=== PATIENT | male | born 1945 | race Caucasian/White ===

== ENCOUNTER → 2016-06-03 | Outpatient (CLI) | payer MEDICARE ==
[~2016-06-03] MED LIST: AMLO2.5T PO; ATOR10TA PO; CONTRAST GIVEN MC PRN; GLIP5TAB10 PO; INSU100I13 SQ; IOHEXOL 240 MG/ML 50ML VIAL. PO ONE; IOHEXOL 300 MG/ML 75 ML VIAL IV ONE; LISI2.5T PO; SITA50TA PO
--- NOTE | 2016-06-03 14:11 | RAD ---
Indication: Follow-up renal lesions Technique: Precontrast, portal venous, and delayed imaging was performed. Oral contrast and 75 mL of intravenous Omnipaque 300 was administered without complication. Comparison is from December 13, 2014. One or more of the following individualized dose reduction techniques were utilized for this examination: 1. Automated exposure control 2. Adjustment of the mA and/or kV according to patient size 3. Use of iterative reconstruction technique Findings: Precontrast imaging demonstrates no urolithiasis. Several simple cysts in the right kidney are noted, largest measures 2.3 cm in size. A few of the smaller lesions are difficult to obtain accurate Hounsfield unit measurements, although also likely cysts. No worrisome renal mass involving either kidney is identified. Intrarenal collecting systems and included ureters are within normal limits on delayed imaging. There is dependent atelectasis. There is no pleural effusion. The heart is not enlarged. There is mild fatty infiltration of the liver. Gallbladder is absent or contracted. Benign calcifications are noted in the spleen. Pancreas and adrenals are unremarkable. The included small bowel is unremarkable. There are a few diverticula without findings of diverticulitis in the included colon. Small fat-containing umbilical hernia is noted. There are degenerative changes in the spine. Impression: 1. Simple cysts noted within both kidneys. Additional small lesions within both kidneys, small size limits characterization, but these also appear to also represent simple cysts. 2. Fatty infiltration of the liver.
== END | disposition home or self-care (01) ==
LOC: CT 10:00
PROVIDERS: ATTEND Internal Medicine Hematology & Oncology
DX: N28.1 Cyst of kidney, acquired (principal); K76.0 Fatty (change of) liver, not elsewhere classified; K82.0 Obstruction of gallbladder; D73.89 Other diseases of spleen; K42.9 Umbilical hernia without obstruction or gangrene; J98.11 Atelectasis
CPT/HCPCS: 74170; Q9966; Q9967

== ENCOUNTER → 2017-06-11 | Outpatient (CLI) | payer MEDICARE | END | disposition home or self-care (01) | LOC: KCIC 08:40 | DX: D47.2 Monoclonal gammopathy (principal); M17.0 Bilateral primary osteoarthritis of knee; M19.012 Primary osteoarthritis, left shoulder; M19.011 Primary osteoarthritis, right shoulder; M40.292 Other kyphosis, cervical region; M79.89 Other specified soft tissue disorders | CPT/HCPCS: 70250; 71045; 72040; 72072; 72100; 72170; 73060; 73090; 73550; 73590 ==

== ENCOUNTER 2017-12-21 06:47 | Outpatient (CLI) | payer MEDICARE ==
[2017-12-21] VITALS (7 sets, daily range): BP systolic 146–175; BP diastolic 79–99
[~2017-12-21] VITALS: Ht 170.2 cm; Wt 91.2 kg
[~2017-12-21 06:47] MED LIST changes: -AMLO2.5T PO; +AMLO2.5T3 PO; -CONTRAST GIVEN MC PRN; -IOHEXOL 240 MG/ML 50ML VIAL. PO ONE; -IOHEXOL 300 MG/ML 75 ML VIAL IV ONE
[2017-12-21] MEDS ORDERED: ATOR40TA59 PO (07:19)
[2017-12-21] MEDS ORDERED: HYDR12.53 PO (07:19)
[2017-12-21] MEDS ORDERED: AMLO10TA6 PO (07:19)
[2017-12-21] MEDS ORDERED: LISI-130 PO (07:19)
[2017-12-21 07:25] LABS: BASO # 0.1 x10^3/uL (0.0-0.2); BASO % 1 % (0-3); EOS # 0.2 x10^3/uL (0.0-0.7); EOS % 3 % (0-3); HEMATOCRIT 39.7 % (39.0-53.0); HEMOGLOBIN 13.7 g/dL (13.0-17.5); LYMPH % 27 % (24-48); MEAN CORPUSCULAR HEMOGLOBIN 30 pg (25-35); MEAN CORPUSCULAR HGB CONC 35 g/dL (31-37); MEAN CORPUSCULAR VOLUME 87 fL (79-100); MONO # 0.5 x10^3/uL (0.0-1.1); MONO % 7 % (0-9); NEUT # 4.7 x10^3uL (1.8-7.7); NEUT % 63 % (31-73); PLATELET COUNT 164 x10^3/uL (140-400); RED BLOOD COUNT 4.58 x10^6/uL (4.30-5.70); RED CELL DISTRIBUTION WIDTH 14.6 % (11.5-14.5); WHITE BLOOD COUNT 7.6 x10^3/uL (4.0-11.0)
[2017-12-21 07:40] LABS: PROTHROMBIN TIME PATIENT 12.8 SEC (11.7-14.0)
[2017-12-21] MEDS ORDERED: LIDOCAINE WITH 8.4% SOD BICARB 3 ML DISP.SYRIN. ONE (08:03)
[2017-12-21] MEDS ORDERED: MIDAZOLAM HCL/PF 2 MG/2 ML VIAL. ONE (08:09)
[2017-12-21] MEDS ORDERED: fentaNYL PF VIAL 100 MCG/2 ML VIAL ONE (08:09)
[2017-12-21] MEDS ORDERED: fentaNYL PF VIAL 100 MCG/2 ML VIAL IV ONE (08:45)
[2017-12-21] MEDS ORDERED: MIDAZOLAM HCL/PF 2 MG/2 ML VIAL. IV ONE (08:45)
[2017-12-21] MEDS ORDERED: LIDOCAINE WITH 8.4% SOD BICARB 3 ML DISP.SYRIN. IJ ONE (08:45)
--- NOTE | 2017-12-21 14:25 | RAD ---
CT-guided bone marrow biopsy. 12/21/2017 2:20 PM Indication: MGUS Discussion: The risks and benefits of the procedure, including but not limited to, bleeding and infection were discussed patient. Informed consent was obtained. The patient was brought to the CT scanner and placed in the prone position. A timeout procedure was performed. Arts Therapist CT imaging of the pelvis demonstrated left ilium amenable to bone marrow biopsy. The overlying soft tissues were prepped and draped using maximum sterile barrier technique. 1% lidocaine without epinephrine was administered for local anesthesia. Under intermittent CT guidance, an OncControl needle was advanced into the bone marrow of the left iliac crest. 2 Aspirates and 1 core biopsy samples were obtained. Samples were delivered to pathology was present at the time of procedure. The needle was removed and manual pressure held to achieve hemostasis. No immediate complications were identified. The procedure was performed under conscious sedation including continuous cardiopulmonary monitoring via dedicated sedation nurse. Sedation time: 20 minutes Impression: Successful CT-guided bone marrow biopsy of the left iliac crest . PQRS Compliance Statement: One or more of the following individualized dose reduction techniques were utilized for this examination: 1. Automated exposure control 2. Adjustment of the mA and/or kV according to patient size 3. Use of iterative reconstruction technique
== END 2017-12-21 10:50 | disposition home or self-care (01) ==
LOC: INTRAD 06:47
PROVIDERS: ATTEND Internal Medicine Hematology & Oncology
DX: D47.2 Monoclonal gammopathy (principal); Z88.8 Allergy status to other drugs, medicaments and biological substances; Z79.899 Other long term (current) drug therapy
CPT/HCPCS: 36415; 38222; 77012; 82962; 85025; 85610; 88184; 88185; 88237; 99152; J2250; J3010

== ENCOUNTER 2018-09-15 08:22 | Outpatient (CLI) | payer MEDICARE ==
[~2018-09-15] VITALS: Ht 170.2 cm; Wt 88.9 kg
[2018-09-15] VITALS (7 sets, daily range): BP systolic 133–167; BP diastolic 75–96
[~2018-09-15 08:22] MED LIST changes: +AMLO10TA8 PO; -AMLO2.5T3 PO; +AMLO2.5T5 PO; +ATOR40TA59 PO; +HYDR12.575 PO; +LISI-130 PO
[2018-09-15] MEDS ORDERED: AMLO10TA8 PO (08:38)
[2018-09-15] MEDS ORDERED: CLON0.1T PO (08:38)
[2018-09-15] MEDS ORDERED: LABE200T4 PO (08:38)
[2018-09-15 08:54] LABS: BASO % 1 % (0-3); EOS # 0.2 x10^3/uL (0.0-0.7); EOS % 3 % (0-3); HEMATOCRIT 30.2 % (39.0-53.0); HEMOGLOBIN 10.3 g/dL (13.0-17.5); LYMPH # 1.4 x10^3/uL (1.0-4.8); LYMPH % 22 % (24-48); MEAN CORPUSCULAR HEMOGLOBIN 30 pg (25-35); MEAN CORPUSCULAR HGB CONC 34 g/dL (31-37); MEAN CORPUSCULAR VOLUME 87 fL (79-100); MONO # 0.4 x10^3/uL (0.0-1.1); MONO % 7 % (0-9); NEUT # 4.1 x10^3uL (1.8-7.7); NEUT % 67 % (31-73); PLATELET COUNT 191 x10^3/uL (140-400); RED BLOOD COUNT 3.48 x10^6/uL (4.30-5.70); RED CELL DISTRIBUTION WIDTH 14.7 % (11.5-14.5); WHITE BLOOD COUNT 6.1 x10^3/uL (4.0-11.0)
[2018-09-15 09:06] LABS: PROTHROMBIN TIME PATIENT 14.1 SEC (11.7-14.0)
[2018-09-15 09:08] LABS: CALCIUM 8.4 mg/dL (8.5-10.1); CREATININE 4.5 mg/dL (0.7-1.3); GFR 12.9; POTASSIUM 3.8 mmol/L (3.5-5.1)
[2018-09-15] MEDS ORDERED: LIDOCAINE 1%/EPI 1:100,000 20 ML VIAL. ONE (09:49)
[2018-09-15] MEDS ORDERED: fentaNYL PF VIAL 100 MCG/2 ML VIAL IV ONE (10:00)
[2018-09-15] MEDS ORDERED: MIDAZOLAM HCL/PF 2 MG/2 ML VIAL. IV ONE (10:00)
[2018-09-15] MEDS ORDERED: LIDOCAINE 1%/EPI 1:100,000 20 ML VIAL. IJ ONE (10:00)
[2018-09-15] MEDS ORDERED: fentaNYL PF VIAL 100 MCG/2 ML VIAL ONE (10:08)
[2018-09-15] MEDS ORDERED: MIDAZOLAM HCL/PF 2 MG/2 ML VIAL. ONE (10:08)
--- NOTE | 2018-09-15 12:22 | NUR ---
Patient discharged to home. All discharged instructions reviewed with the client and his spouse. The client verbalized an understanding of instructions. Order given to client to take to the dialysis center to use catheter. PIV site discontinued without difficulty. Client escorted to front entrance per w/c with all personal belongings and discharge instructions to private vehicle.
--- NOTE | 2018-09-15 12:26 | RAD ---
Procedure: Tunneled hemodialysis catheter placement 09/15/2018 12:22 PM Clinical Indication: CKD STAGE IV Sterility: All elements of maximal sterile barrier technique including the use of a cap, mask, sterile gown, sterile gloves, large sterile sheet, appropriate hand hygiene, and 2% chlorhexidine for cutaneous antisepsis (or acceptable alternative antiseptic per current guidelines) were followed for this procedure. Consent: The procedure was explained in its entirety to the patient or the patients designated client relations representative by a member of the treatment team, including a discussion of the risks, benefits and commonly accepted alternatives to the procedure, as well as the expected consequences of no therapy whatsoever. Discussion of the risks included, but was not limited to, those that are most frequent and those that are rare but possibly severe or life-threatening, as well as the possibility of unforeseen complications. Technique and Findings: Following informed consent, a timeout procedure was performed. The patient was prepped and draped in the usual sterile fashion. Ultrasound interrogation of the right neck revealed patency and compressibility of the right internal jugular vein. A 21-gauge micropuncture was then used to gain access to this vein under ultrasound guidance. A hard copy ultrasound image was recorded. The needle was exchanged over a wire for a 4 Libyan sheath which was used to guide an guidewire into the IVC. The skin over the right anterior chest wall was copiously anesthetized with 1% Lidocaine and a small dermatotomy was made. A 23 cm tipped cuff palindrome tunneled hemodialysis catheter was then tunneled subcutaneously towards the neck dermatotomy and deployed through a large caliber peel-away sheath under fluoroscopic guidance such that the distal tip resided in the mid right atrium. Manual flow rates were assessed and found to be within normal limits. The catheter was then flushed, packed with Heparin, capped, and sutured to the skin. The neck dermatotomy was closed with Dermabond. No immediate complications were identified. Sedation: Conscious sedation was administered for 18 minutes. The patient was monitored by a qualified independent observer throughout the time of sedation. Please refer to the medical record for exact doses of medications utilized to achieve moderate sedation. Fluoroscopy time 0.5 Minutes Dose area product:3Gycm2 Impression: Tunneled hemodialysis catheter placement as described
== END 2018-09-15 12:29 | disposition home or self-care (01) ==
LOC: INTRAD 08:22
PROVIDERS: ATTEND Internal Medicine Nephrology
DX: N18.4 Chronic kidney disease, stage 4 (severe) (principal)
CPT/HCPCS: 36415; 36558; 76937; 77001; 80048; 85025; 85610; 99152; C1750; C1769; C1892; J0696; J2250; J3010; J3490

== ENCOUNTER → 2020-05-21 | Outpatient (CLI) | payer MEDICARE ==
[2020-05-21] VITALS (16 sets, daily range): BP systolic 149–175; BP diastolic 59–96
[~2020-05-21] VITALS: Ht 170.2 cm; Wt 92.5 kg
[~2020-05-21] MED LIST changes: +AMLO-187 PO; -AMLO10TA8 PO; +CALC500T30 PO; +CLON0.1T PO; +FOLI0.8T21 PO; +HEPARIN for ARTERIAL LINE 1,500 ML ONE; +HEPARIN for IV BOLUS 10,000 UNIT/10 ML VIAL. IV ONE; +HEPARIN for IV BOLUS 10,000 UNIT/10 ML VIAL. ONE; +IODIXANOL 320 MG/ML 100 ML VIAL. IART ONE; +IODIXANOL 320 MG/ML 100 ML VIAL. ONE; +LABE200T4 PO; +LIDOCAINE 1% Multi-Dose 20 ML VIAL. INJ ONE; +LIDOCAINE 1% Multi-Dose 20 ML VIAL. ONE; +MIDAZOLAM HCL/PF 5 MG/5 ML VIAL. IV ONE; +MIDAZOLAM HCL/PF 5 MG/5 ML VIAL. ONE; +NITROGLYCERIN 200 MCG/2 ML SYRINGE FOR CATH/VASC LAB. ICAR ONE; +fentaNYL PF VIAL 100 MCG/2 ML VIAL IVP ONE; +fentaNYL PF VIAL 100 MCG/2 ML VIAL ONE
[2020-05-21 07:43] LABS: HEMATOCRIT 33.3 % (39.0-53.0); HEMOGLOBIN 11.3 g/dL (13.0-17.5); RED BLOOD COUNT 3.5 x10^6/uL (4.30-5.70); RED CELL DISTRIBUTION WIDTH 14.4 % (11.5-14.5); WHITE BLOOD COUNT 6.3 x10^3/uL (4.0-11.0)
[2020-05-21 07:53] LABS: CREATININE 7.3 mg/dL (0.7-1.3); GFR 7.4
[2020-05-21 08:01] LABS: PROTHROMBIN TIME PATIENT 13.4 SEC (11.7-14.0)
--- NOTE | 2020-05-21 09:07 | PDOC ---
MODERATE SEDATION ASSESSMENT RISKS/ALTERNATIVES Risks/Alternatives Risks and alternatives of this type of sedation and procedure discussed with: RISK/ALTERNATIVES: Patient H & P ON CHART H & P H & P on chart and reviewed for co-morbid conditions and appropriate labs. H&P ON CHART: Yes STATUS PREG STATUS ASSESSED: N/A MEDS/ALLERGIES REVIEWED Meds/Allergies Reviewed Medications and Allergies including time and route of recently administered narcotics and sedatives. MEDS/ALLERGIES REVIEWED: Yes ASA RATING ASA RATING: II AIRWAY ASSESSMENT Airway Assessment Airway patency, oral function limitations, presence of caps, crowns, dentures, partials, and ability to extend neck assessed. AIRWAY ASSESSMENT: Yes MALLAMPATI SCORE MALLAMPATI SCORE: II PRE-SEDATION ASSESSMENT PRE-SEDATION ASSESSMENT: Yes CANDY FGIUEROA MD May 21, 2020 09:07
--- NOTE | 2020-05-21 14:23 | CARD ---
MR#: [id number] Date of Study: 05/21/2020 Ordering Physician: CANDY WATERMAN, Referring Physician: CANDY WATERMAN, Tech: GENARO LAGOS APPROVED REPORT Technologist: GENARO LAGOS Nurse: Jayda Weeks R.N. Procedure(s) performed: MODERATE SEDATION TIME: 113 MINUTES FLUORO TIME: 15.5 MIN DOSE:149.2 GYCM2 CONTRAST: 197CC VISI LHC, RHC, Coronary angiography, iFR of the LAD [facility] Clinical Frailty Scale [facility] Clinical Frailty Scale: Mildly Frail Heart Failure Heart Failure: Yes If Yes, Newly Diagnosed: No If Yes, HF Type: Diastolic If Yes, NYHA Class: Class II CASE TECHNIQUE IV conscious sedation was used throughout procedure with appropriate monitoring and was performed in the presence of a registered nurse who was an independent trained observer other than the physician p erforming the procedure. During this case, Fluoroscopy and low osmolar contrast were used for imaging . Specimen(s) Removed: N/A Estimated Blood loss: 15 cc's. PROCEDURE NARRATIVE Clinical information: 74-year-old male seen in the office for preoperative renal transplant evaluation. He has multiple ri sk factors and per transplant guidelines underwent a right and left heart catheterization. Procedure Details: After appropriate informed consent the right groin was prepped and draped in usual sterile fashion. A 5 Latvian sheath was inserted into the right common femoral artery and vein without any significant difficulty. Next, diagnostic angiography was performed with a 5 Latvian JL4 and JR4 catheters. LVEDP was obtained with a 5 Fr JR4 catheter and pull back was performed. Right heart catheterization was performed with a 5 Latvian PA catheter and pressures and saturations were obtained. Findings: Aorta: 150/80 LVEDP 19 mmHg No pullback gradient across the aortic valve Coronary angiography: Left main is a large-caliber vessel with normal angiographic appearance LAD is a moderate caliber vessel with a proximal eccentric 70% stenosis followed by mild diffuse irre gularities of up to 20% Left circumflex is a moderate caliber vessel with a mid long diffuse 70 to 80% stenosis OM1 is a small caliber vessel with mild luminal irregularities OM 2 is a moderate caliber vessel with a proximal to mid 80% stenosis RCA is a moderate caliber vessel with a proximal 100% occlusion in the distal vessel seen to fill via left to right collaterals. Interventional technique: Given the presence of moderate LAD stenosis a decision was made to perform a IFR study. Heparin was used for anticoagulation. Through a 6 Latvian EBU 4 guide catheter a IFR wire was placed in the dista l LAD after appropriate normalization and intracoronary glycerin administration. And IFR value of 0. 70 was noted. A careful pullback across the proximal LAD lesion confirmed the stenosis without any e vidence of drift when the wire was pulled back into the guide catheter. At case completion the right groin sheaths were removed and hemostasis was achieved with manual compr ession. There were no acute complications. Conclusion 1. Mildly elevated left-sided filling pressures 2. Severe three-vessel coronary artery disease with positive IFR of the LAD at 0.70 Recommendations 1. The patient currently is asymptomatic, cardiac catheterization was performed as part of a renal p retransplant work-up. Given the ischemia in the LAD territory and three-vessel coronary artery disea se options would include bypass surgery, high risk complex PCI (which may not provide full revascular ization and preclude future possibility of renal transplantation), or continued medical therapy. The patient will speak with his primary pantry worker, this information has also been provided to [facility] clinical lab technologist Magdalena Estes. The patient will be referred to Dr. Niles Elizalde, who is t he renal transplant clinic cardiology preferred provider. Further determination per transplant clinic. 2. Echo is currently pending Signed by : Candy Waterman, Electronically Approved : 05/21/2020 14:22:42
--- NOTE | 2020-05-21 15:02 | NUR ---
discharge instructions reviewed with patient. Pt ambulated and tolerated PO. PIV remains intact for Echocardiogram. Pt transferred to cardiac center.
--- NOTE | 2020-05-22 08:49 | CARD ---
MR#: [id number] Date of Study: 05/21/2020 Ordering Physician: ACNDY FIGUEROA, Referring Physician: CANDY FIGUEROA, Tech: Natasha Jessica [facility] APPROVED REPORT EXAM: Two-dimensional and M-mode echocardiogram with Doppler and color Doppler. Other Information Quality : Fair Rhythm : Bradycardia INDICATION Hypertension/HCVD S/P Cardiac Catheterization, ESRD RISK FACTORS Obesity 2D DIMENSIONS RVDd3.1 (2.9-3.5cm)Left Atrium(2D)4.1 (1.6-4.0cm) IVSd1.0 (0.7-1.1cm)Aortic Root(2D)2.4 (2.0-3.7cm) LVDd5.9 (3.9-5.9cm)LVOT Diameter2.3 (1.8-2.4cm) PWd1.0 (0.7-1.1cm)LVDs3.6 (2.5-4.0cm) FS (%) 38.9 %SV117.3 ml LVEF(%)68.5 (>50%) Aortic Valve AoV Peak Jg.135.3cm/sAoV VTI32.7cm AO Peak GR.7.3mmHgLVOT Peak Jg.106.3cm/s LVOT VTI 29.89cmAO Mean GR.4mmHg CASSY (VMAX)3.52us3PHZ (VTI)3.72cm2 AI P 1/2 Dxro426qy Mitral Valve MV E Oudptmfy210.5cm/sMV DECEL GZGJ100yz MV A Ukwauisq41.3cm/sMV WML01ui E/A Ratio1.4MVA (PHT)3.52cm2 TDI E/Lateral E'15.1E/Medial E'22.2 Pulmonary Vein S1 Eyvzczzg44.5cm/sD2 Qjupbscb48.3cm/s LEFT VENTRICLE The left ventricle is normal size. There is normal left ventricular wall thickness. Left ventricle sy stolic function is normal. The Ejection Fraction is 55%. There is normal LV segmental wall motion. Tr ansmitral Doppler flow pattern is Grade II-pseudonormal filling dynamics. RIGHT VENTRICLE The right ventricle is normal size. The right ventricular systolic function is normal. ATRIA The left atrium is mildly dilated. The right atrium size is normal. The interatrial septum is intact with no evidence for an atrial septal defect or patent foramen ovale as noted on 2-D or Doppler imagi ng. AORTIC VALVE The aortic valve is not well visualized but appears to be functioning normally by Doppler interrogati on. Doppler and Color Flow revealed mild eccentric aortic regurgitation. There is no significant aort ic valvular stenosis. MITRAL VALVE The mitral valve is calcified but opens well. There is no evidence of mitral valve prolapse. There is no mitral valve stenosis. Doppler and Color-flow revealed trace mitral regurgitation. TRICUSPID VALVE The tricuspid valve is normal in structure and function. Doppler and Color Flow revealed no tricuspid valve regurgitation noted. There is no tricuspid valve stenosis. PULMONIC VALVE The pulmonic valve is not well visualized. Doppler and Color Flow revealed no pulmonic valvular regur gitation. There is no pulmonic valvular stenosis. GREAT VESSELS The aortic root is normal in size. The ascending aorta is mildly dilated. The IVC is normal in size a nd collapses >50% with inspiration. PERICARDIAL EFFUSION There is no evidence of significant pericardial effusion. Critical Notification Critical Value: No <Conclusion> Left ventricle systolic function is normal. The Ejection Fraction is 55%. Mild eccentric aortic regurgitation. Trace mitral regurgitation. There is no evidence of significant pericardial effusion. Signed by : Michele Simmons, Electronically Approved : 05/22/2020 08:48:42
== END | disposition home or self-care (01) ==
LOC: CCL 06:51
PROVIDERS: ATTEND Internal Medicine Cardiovascular Disease
DX: I25.10 Atherosclerotic heart disease of native coronary artery without angina pectoris (principal); I35.1 Nonrheumatic aortic (valve) insufficiency; I12.0 Hypertensive chronic kidney disease with stage 5 chronic kidney disease or end stage renal disease; N18.6 End stage renal disease; E11.22 Type 2 diabetes mellitus with diabetic chronic kidney disease; E78.00 Pure hypercholesterolemia, unspecified; Z99.2 Dependence on renal dialysis; Z87.891 Personal history of nicotine dependence; Z79.84 Long term (current) use of oral hypoglycemic drugs; Z79.899 Other long term (current) drug therapy; Z98.890 Other specified postprocedural states; Z90.49 Acquired absence of other specified parts of digestive tract; Z72.89 Other problems related to lifestyle; Z88.8 Allergy status to other drugs, medicaments and biological substances; Z20.822 Contact with and (suspected) exposure to COVID-19
CPT/HCPCS: 36415; 80048; 85027; 85347; 85610; 87426; 93306; 93460; 93571; 99152; 99153; C1769; C1773; C1887; C1892; J1644; J2250; J3010; J3490; Q9967; U0003

== ENCOUNTER → 2020-12-10 | Outpatient (CLI) | payer MEDICARE ==
[2020-05-21 15:00] VITALS: BP 165/74
[~2020-12-10] MED LIST changes: -HEPARIN for ARTERIAL LINE 1,500 ML ONE; -HEPARIN for IV BOLUS 10,000 UNIT/10 ML VIAL. IV ONE; -HEPARIN for IV BOLUS 10,000 UNIT/10 ML VIAL. ONE; -IODIXANOL 320 MG/ML 100 ML VIAL. IART ONE; -IODIXANOL 320 MG/ML 100 ML VIAL. ONE; -LIDOCAINE 1% Multi-Dose 20 ML VIAL. INJ ONE; -LIDOCAINE 1% Multi-Dose 20 ML VIAL. ONE; -LISI2.5T PO; +LISI2.5T12 PO; -MIDAZOLAM HCL/PF 5 MG/5 ML VIAL. IV ONE; -MIDAZOLAM HCL/PF 5 MG/5 ML VIAL. ONE; -NITROGLYCERIN 200 MCG/2 ML SYRINGE FOR CATH/VASC LAB. ICAR ONE; +REGADENOSON 0.4 MG/5 ML DISP.SYRIN. IV ONE; -fentaNYL PF VIAL 100 MCG/2 ML VIAL IVP ONE; -fentaNYL PF VIAL 100 MCG/2 ML VIAL ONE
--- NOTE | 2020-12-10 16:44 | RAD ---
MR#: [id number] Date of Study: 12/10/2020 Ordering Physician: CANDY FIGUEROA, Referring Physician: ARYA PAEZ Tech: RT Evelina (R) (N) APPROVED REPORT Test Type: Pharmacological Stress Nurse/Tech: Jena Isaacs R.N. Test Indications: cad, shortness of breath Cardiac History: stents, htn, dialysis, smoker, dm Medications: See Electronic Medical Record Medical History: See Electronic Medical Record Resting ECG: SR Resting Heart Rate: 58 bpm Resting Blood Pressure: 169/68mmHg Pretest Chest Pain: No chest pain Nurse/Tech Notes lungs cta,heart tones regular Consent: The procedure was explained to the patient in lay terms. Informed consent was witnessed. Avery eout was entered into [employer]. History and Stress Test performed by KWAN Saunders, LORETA (R) (N) Pharm. Details Pharmacologic stress testing was performed using 0.4mg per 5ml of regadenoson given intravenously ove r 7-10 seconds. Stress Symptoms No chest pain or symptoms. POST EXERCISE Reason for Termination: Infusion complete Target HR: No Max HR: 67 bpm Max Blood Pressure: 149/69mmHg Chest Pain: No. Arrhythmia: No. ST Change: No. INTERPRETATION Stress EKG Conclusion: Baseline EKG showed sinus rhythm. No ischemic changes at peak stress. No arr hythmias. Imaging Protocol IMAGE PROTOCOL: Rest Tc-99m/stress Tc-99m 1 day Rest: Stress: Viability: Radiopharm.Tc99m SwzzuainrSd48l Sestamibi Dose10.5mCi 30mCi Duration 15min. 10min. Img Date 12/10/2020 12/10/2020 Inj-Img [id number]. 60min. Rest Admin Site:IV - Right HandAdministrator:KWAN Saunders ARRT (R)(N) Stress Admin Site: IV - Right HandAdministrator: KWAN Saunders ARRT (R)(N) STRESS DATA End Diast. Vol.235.0mlAv. Heart Rate60.0bpm End Syst. Vol.97.0mlCO Index BSA0.0L/min Myocardial Ahyf282.0gEject. Tmfjxxrb45.0% Stress Rates Pk. Fill Rate2.35EDV/secLVtime Pk. Fill 106.65msec Pk. Empty Rate2.44ESV/secLVtime Pk. Ufoih416.97msec 1/3 Pk. Fill1.67EDV/sec Stress Scores Regional WT1.00Summed WT7.00 Regional WM0.00Summed WM1.00 Study quality was good. Left Ventricular size was Normal at Rest and Stress. Lung uptake was . Left Ventricular ejection fraction is 54%. The rest and stress images show normal perfusion, normal contraction and thickening. LV Perf. Quant 17 Seg. SSS3.00 17 Seg. SRS0.00 17 Seg. SDS3.00 Stress Defect Extent (% LAD)1.90Rest Defect Extent (% LAD)0.00Rev. Defect Extent (% LAD)0.00 Stress Defect Extent (% LCX) 11.30Rest Defect Extent (% LCX)0.00Rev. Defect Extent (% LCX)7.50 Stress Defect Extent (% RCA)0.00Rest Defect Extent (% RCA)0.00Rev. Defect Extent (% RCA)0.00 Stress Defect Extent (% CHRISTEL)4.80Rest Defect Extent (% CHRISTEL)0.00Rev. Defect Extent (% CHRISTEL)1.30 Conclusion 1. Regadenoson cardioisotope stress test did not show any evidence of ischemia or infarct. 2. Normal left ventricular systolic function with ejection fraction calculated at 54%. 3. Low risk for cardiac events. Signed by : Michele Simmons, Electronically Approved : 12/10/2020 16:44:19
== END ==
LOC: NM 09:13
PROVIDERS: ATTEND Internal Medicine Cardiovascular Disease
DX: I25.10 Atherosclerotic heart disease of native coronary artery without angina pectoris (principal)
CPT/HCPCS: 78452; 93017; A9500; J2785

== ENCOUNTER 2020-12-24 06:51 | Inpatient (IN) | payer MEDICARE ==
[2020-12-24] VITALS (18 sets, daily range): BP systolic 153–184; BP diastolic 66–81
[~2020-12-24] VITALS: Ht 170.2 cm; Wt 88.4 kg
[~2020-12-24 06:51] MED LIST changes: -REGADENOSON 0.4 MG/5 ML DISP.SYRIN. IV ONE
[2020-12-24 07:38] LABS: HEMATOCRIT 32.3 % (39.0-53.0); HEMOGLOBIN 10.9 g/dL (13.0-17.5); RED BLOOD COUNT 3.39 x10^6/uL (4.30-5.70); RED CELL DISTRIBUTION WIDTH 14.6 % (11.5-14.5); WHITE BLOOD COUNT 5.9 x10^3/uL (4.0-11.0)
[2020-12-24] MEDS ORDERED: LIDOCAINE 1% PF 2 ML VIAL. ONE (07:38)
[2020-12-24] MEDS ORDERED: IODIXANOL 320 MG/ML 100 ML VIAL. ONE (07:38)
[2020-12-24] MEDS ORDERED: HEPARIN for ARTERIAL LINE 1,500 ML ONE (07:38)
[2020-12-24 07:42] LABS: CALCIUM 9.4 mg/dL (8.5-10.1); CREATININE 7.1 mg/dL (0.7-1.3); GFR 7.6
[2020-12-24 07:45] LABS: POTASSIUM 6.5 mmol/L (3.5-5.1)
[2020-12-24] MEDS ORDERED: LOSA-73 PO (08:00)
[2020-12-24] MEDS ORDERED: ATOR20TA58 PO (08:03)
[2020-12-24] MEDS ORDERED: ALBUMIN HUMAN 25% 200 ML IV PRN (09:15)
[2020-12-24] MEDS ORDERED: DIALYSIS PATIENT. MC PRN ×2 (09:15→10:00)
[2020-12-24] MEDS ORDERED: IV NORMAL SALINE 1000ML BAG 1,000 ML IV PRN ×4 (09:15→10:00)
--- NOTE | 2020-12-24 09:16 | NUR ---
Dr. Waterman notified of critical potassium 6.6. Pt admitted and Dr. Wren consulted. Pt transferred to fifth floor for dialysis. Report called to JOSÉ Jordan>
[2020-12-24] MEDS ORDERED: LIDOCAINE 1% Multi-Dose 20 ML VIAL. ONE (11:43)
[2020-12-24] MEDS ORDERED: MIDAZOLAM HCL/PF 2 MG/2 ML VIAL. ONE (12:31)
[2020-12-24] MEDS ORDERED: fentaNYL PF VIAL 100 MCG/2 ML VIAL ONE (12:31)
--- NOTE | 2020-12-24 12:49 | PDOC1 ---
History and Physical Visit Information Date of Admission: 12/24/2020 History of Present Illness History of Present Illness Mr. Foster is a pleasant 75-year-old man with a past medical history as noted below who presents to the catheterization laboratory today for planned outpatient PCI of his LAD and left circumflex. Please see prior report for full details but briefly he was initially seen in the setting of renal pretransplant evaluation. He was found to have three-vessel coronary artery disease and at that time was referred to the transplant clinic at nephrology about the likelihood of him receiving a transplantation. Ultimately, we discussed various options including medical therapy since he was asymptomatic with preserved LV function versus bypass surgery versus complex staged PCI. Ultimately, it was felt that he was a poor candidate for renal transplantation and initially was doing fairly well with medical therapy but over the last several months began to have worsening exertional dyspnea and this is lifestyle limiting. Despite aggressive fluid removal and blood pressure control he continued to have symptoms of dyspnea. He was seen in the office with his daughter and we had a thorough discussion about various options for treatment including bypass surgery and PCI. The patient adamantly did not want consideration for bypass surgery and therefore presents to the [facility] today for planned intervention. Preprocedure testing revealed an elevated potassium of 6.6 and therefore he was taken to the dialysis unit and underwent urgent dialysis. He was then subsequently brought down for planned procedure. Cardiac Risk Factors Comments 1. End-stage renal disease on hemodialysis Thursday//Thursday 2. Hypertension 3. Type 2 diabetes 4. Dyslipidemia 5. Triple-vessel coronary artery disease 6. Diastolic heart failure, chronic Current Medications Current Medications Current Medications Albumin Human 200 ml @ 200 mls/hr 1X PRN PRN IV Hypotension; Start 12/24/20 at 09:15; Stop 12/24/20 at 15:14; Status Cancel Fentanyl Citrate (Fentanyl 2ml Vial) 100 mcg STK-MED ONCE .ROUTE ; Start 12/24/20 at 12:31; Stop 12/24/20 at 12:31; Status DC Heparin Sodium/ Sodium Chloride 1,500 ml @ As Directed STK-MED ONCE .ROUTE ; Start 12/24/20 at 07:38; Stop 12/24/20 at 07:38; Status DC Info (PHARMACY MONITORING -- do not chart) 1 each PRN DAILY PRN MC SEE COMMENTS; Start 12/24/20 at 09:15; Stop 12/25/20 at 09:14; Status Cancel Info (PHARMACY MONITORING -- do not chart) 1 each PRN DAILY PRN MC SEE CO MMENTS; Start 12/24/20 at 10:00; Stop 12/25/20 at 09:59 Iodixanol (Visipaque 320) 100 ml STK-MED ONCE .ROUTE ; Start 12/24/20 at 07:38; Stop 12/24/20 at 07:38; Status DC Lidocaine HCl (Lidocaine 1% 20ml Vial) 20 ml STK-MED ONCE .ROUTE ; Start 12/24/20 at 11:43; Stop 12/24/20 at 11:43; Status DC Lidocaine HCl (Xylocaine-Mpf 1% 2ml Vial) 2 ml STK-MED ONCE .ROUTE ; Start 12/24/20 at 07:38; Stop 12/24/20 at 07:38; Status DC Midazolam HCl (Versed) 2 mg STK-MED ONCE .ROUTE ; Start 12/24/20 at 12:31; Stop 12/24/20 at 12:31; Status DC Sodium Chloride 1,000 ml @ 400 mls/hr Q2H30M PRN IV PATENCY; Start 12/24/20 at 09:15; Stop 12/24/20 at 21:14; Status Cancel Sodium Chloride 1,000 ml @ 400 mls/hr Q2H30M PRN IV PATENCY; Start 12/24/20 at 10:00; Stop 12/24/20 at 21:59 Sodium Chloride 1,000 ml @ 1,000 mls/hr Q1H PRN IV hypotension; Start 12/24/20 at 09:15; Stop 12/24/20 at 15:14; Status Cancel Sodium Chloride 1,000 ml @ 1,000 mls/hr Q1H PRN IV hypotension; Start 12/24/20 at 10:00; Stop 12/24/20 at 15:59 Allergies Allergies Allergies Coded Allergies Type Severity Reaction Last Updated Verified metformin Allergy Severe breathing problems 12/24/20 Yes atenolol Allergy Intermediate Unknown 09/15/18 Yes Social History Comments No current alcohol, tobacco or illicit drug use Family History Comments Noncontributory ROS Review of System Negative for 10 out of 14 systems reviewed unless otherwise mentioned above in HPI Physical Exam General: Alert, Oriented X3 HEENT: Atraumatic Lungs: Clear to auscultation Heart: Regular rate, Normal S1, Normal S2 CHEST: Clear to auscultation Abdomen: Normal bowel sounds Extremities: No clubbing Skin: No rashes Neuro: Normal gait Vitals VITALS Vital Signs Date Time Temp Pulse Resp B/P (MAP) Pulse Ox O2 Delivery O2 Flow Rate FiO2 12/24/20 08:04 Room Air 12/24/20 08:04 99.0 59 23 158/72 (100) 94 99.0 Labs Labs Laboratory Tests Test 12/24/20 07:20 12/24/20 07:52 White Blood Count 5.9 x10^3/uL (4.0-11.0) Red Blood Count 3.39 x10^6/uL (4.30-5.70) Hemoglobin 10.9 g/dL (13.0-17.5) Hematocrit 32.3 % (39.0-53.0) Mean Corpuscular Volume 95 fL (79-100) Mean Corpuscular Hemoglobin 32 pg (25-35) Mean Corpuscular Hemoglobin Concent 34 g/dL (31-37) Red Cell Distribution Width 14.6 % (11.5-14.5) Platelet Count 157 x10^3/uL (140-400) Sodium Level 139 mmol/L (136-145) Potassium Level 6.5 mmol/L (3.5-5.1) 6.6 mmol/L (3.5-5.1) Chloride Level 101 mmol/L (98-107) Carbon Dioxide Level 27 mmol/L (21-32) Anion Gap 11 (6-14) Blood Urea Nitrogen 53 mg/dL (8-26) Creatinine 7.1 mg/dL (0.7-1.3) Estimated GFR (Cockcroft-Gault) 7.6 Glucose Level 70 mg/dL (70-99) Calcium Level 9.4 mg/dL (8.5-10.1) Laboratory Tests Test 12/24/20 07:20 12/24/20 07:52 White Blood Count 5.9 x10^3/uL (4.0-11.0) Red Blood Count 3.39 x10^6/uL (4.30-5.70) Hemoglobin 10.9 g/dL (13.0-17.5) Hematocrit 32.3 % (39.0-53.0) Mean Corpuscular Volume 95 fL (79-100) Mean Corpuscular Hemoglobin 32 pg (25-35) Mean Corpuscular Hemoglobin Concent 34 g/dL (31-37) Red Cell Distribution Width 14.6 % (11.5-14.5) Platelet Count 157 x10^3/uL (140-400) Sodium Level 139 mmol/L (136-145) Potassium Level 6.5 mmol/L (3.5-5.1) 6.6 mmol/L (3.5-5.1) Chloride Level 101 mmol/L (98-107) Carbon Dioxide Level 27 mmol/L (21-32) Anion Gap 11 (6-14) Blood Urea Nitrogen 53 mg/dL (8-26) Creatinine 7.1 mg/dL (0.7-1.3) Estimated GFR (Cockcroft-Gault) 7.6 Glucose Level 70 mg/dL (70-99) Calcium Level 9.4 mg/dL (8.5-10.1) ECG EKG: NSR VTE Prophylaxis Ordered VTE Prophylaxis Devices: No VTE Pharmacological Prophylaxi: No Assessment/Plan Assessment/Plan 1. Unstable angina and dyspnea in the setting of triple-vessel disease. 2. Acute hyperkalemia in the setting of end-stage renal disease, hemodialysis completed 3. Multiple cardiovascular risk factors as noted above We will plan for complex PCI of the LAD and left circumflex. Consider staged RCA YARD RIGGER PCI if symptoms or not improved. Justicifation of Admission Dx: Justifications for Admission: Justification of Admission Dx: Yes Chronic Renal Failure: Electrolyte Abnormality CANDY FIGUEROA MD Dec 24, 2020 12:49
--- NOTE | 2020-12-24 12:50 | PDOC ---
MODERATE SEDATION ASSESSMENT RISKS/ALTERNATIVES Risks/Alternatives Risks and alternatives of this type of sedation and procedure discussed with: RISK/ALTERNATIVES: Patient H & P ON CHART H & P H & P on chart and reviewed for co-morbid conditions and appropriate labs. H&P ON CHART: Yes STATUS PREG STATUS ASSESSED: N/A MEDS/ALLERGIES REVIEWED Meds/Allergies Reviewed Medications and Allergies including time and route of recently administered narcotics and sedatives. MEDS/ALLERGIES REVIEWED: Yes ASA RATING ASA RATING: II AIRWAY ASSESSMENT Airway Assessment Airway patency, oral function limitations, presence of caps, crowns, dentures, partials, and ability to extend neck assessed. AIRWAY ASSESSMENT: Yes MALLAMPATI SCORE MALLAMPATI SCORE: II PRE-SEDATION ASSESSMENT PRE-SEDATION ASSESSMENT: Yes CANDY FIGUEROA MD Dec 24, 2020 12:50
[2020-12-24] MEDS ORDERED: HEPARIN for IV BOLUS 10,000 UNIT/10 ML VIAL. ONE (13:24)
[2020-12-24] MEDS ORDERED: NITROGLYCERIN 200 MCG/2 ML SYRINGE FOR CATH/VASC LAB. ONE (13:38)
[2020-12-24] MEDS ORDERED: MIDAZOLAM HCL/PF 2 MG/2 ML VIAL. IV ONE (13:45)
[2020-12-24] MEDS ORDERED: HEPARIN for IV BOLUS 10,000 UNIT/10 ML VIAL. IV ONE (13:45)
[2020-12-24] MEDS ORDERED: IODIXANOL 320 MG/ML 100 ML VIAL. IART ONE (13:45)
[2020-12-24] MEDS ORDERED: LIDOCAINE 1% Multi-Dose 20 ML VIAL. INJ ONE (13:45)
[2020-12-24] MEDS ORDERED: fentaNYL PF VIAL 100 MCG/2 ML VIAL IV ONE (13:45)
[2020-12-24] MEDS ORDERED: TIROFIBAN 5MG -0.9% NS 100 ML IV ONE (14:06)
[2020-12-24] MEDS ORDERED: CLOPIDOGREL BISULFATE 75 MG TABLET ONE (14:06)
[2020-12-24] MEDS ORDERED: hydrALAZINE 20 MG/ML VIAL. ONE (14:12)
[2020-12-24] MEDS ORDERED: hydrALAZINE 20 MG/ML VIAL. IVP ONE (14:15)
[2020-12-24] MEDS ORDERED: NITROGLYCERIN 200 MCG/2 ML SYRINGE FOR CATH/VASC LAB. ICAR ONE (14:15)
[2020-12-24] MEDS ORDERED: CLOPIDOGREL BISULFATE 75 MG TABLET PO ONE (14:15)
[2020-12-24] MEDS ORDERED: CONTRAST GIVEN. MC PRN (14:15)
[2020-12-24] MEDS ORDERED: TIROFIBAN 5MG -0.9% NS 100 ML IV PRN (14:30)
[2020-12-24] MEDS ORDERED: ASPI-424 PO (14:46)
--- NOTE | 2020-12-24 18:18 | CARD ---
MR#: [id number] Date of Study: 12/24/2020 Ordering Physician: CANDY WATERMAN, Referring Physician: CANDY WATERMAN, Tech: RT Sera(R) APPROVED REPORT Technologist: Rose Hidalgo RT(R) Nurse: Jena Isaacs RN Procedure(s) performed: Sedation Time: 78 Minutes Fluoro Time: 15.8 Minutes Dose: 182 Gycm2 Contrast: 249 mL Visipaque Left heart cath, coronary angiography, complex PCI to the left mid circumflex. [facility] Clinical Frailty Scale [facility] Clinical Frailty Scale: Moderately Frail Heart Failure Heart Failure: Yes If Yes, Newly Diagnosed: No If Yes, HF Type: Diastolic If Yes, NYHA Class: Class II CASE TECHNIQUE During this case, Fluoroscopy and low osmolar contrast were used for imaging. Specimen(s) Removed: N/ A Estimated Blood loss: 15 cc's. PROCEDURE NARRATIVE Clinical information: 75-year-old male presented to the [facility] in setting of worsening exertional dyspnea and three-vesse l coronary artery disease for planned PCI of the circumflex. Procedure details: After appropriate informed consent the right groin was prepped and draped in usual sterile fashion. Under 1% lidocaine local anesthesia a 6 Dutch sheath was placed in the right common femoral artery v ia the modified Seldinger technique using an 18-gauge needle and a J-tipped guidewire. Next, diagnos tic angiography was performed with a 6 Dutch EBU 4.0 guide catheter. After confirmation of the prev ious identified left circumflex stenosis a decision was made to proceed with coronary angiography.\ Findings: Aorta: 170/80 LVEDP 19 mmHg No significant LV to aortic pullback gradient Coronary angiography: Left main is a large-caliber vessel with normal angiographic appearance LAD is a moderate to large caliber calcified vessel with a long segment proximal to mid 50% stenosis Left circumflex is a moderate to large caliber vessel with a proximal 50% stenosis OM1 is a small caliber vessel with a ostial 30% stenosis OM2 is a moderate to large caliber vessel with heavy calcification and sequential 80% stenoses in the proximal segment. RCA is a moderate to large caliber vessel with a known proximal occlusion and it was not injected. T here are robust left to right collaterals noted. Interventional technique: Heparin was used for anticoagulation. A bolus of tirofiban was administered as well. A Prowater wir e was placed in the distal OM 2. Balloon angioplasty was then performed with a 3.0 x 20 mm balloon. There was significant heavy calcification involving the vessel. This made the PCI more complex. Ne xt, with the aid of a guide liner a 3.5 x 32 mm [place] Promus Elite drug-eluting stent was placed ext ending from the mid circumflex into the second obtuse marginal and covering the ostium of the first o btuse marginal. After initial stent deployment at 10 osmani there was residual stent recoil. This was then postdilated with a 3.5 mm noncompliant balloon at 14 osmani. Final angiography demonstrated excell ent stent expansion with SALUD-3 flow in the vessel no evidence of guide or wire related complications . The OM1 ostium was preserved. Due to significant heavy calcification involving the proximal circu mflex it was felt that the 50% lesion should be left alone and consider PCI with rotational atherecto my in the future if necessary based on symptomatic improvement for the patient. At case completion t he right groin sheath was removed and hemostasis was achieved via manual compression. The patient re ceived 60 mg of Plavix at case completion. No acute complications noted. SALUD Flow SALUD Flow (Pre-Intervention): SALUD-3 SALUD Flow (Post-Intervention): SALUD-3 Conclusion 1. Acute on chronic diastolic heart failure, LVEDP 19 mmHg 2. Severe three-vessel coronary artery disease 3. Successful complex PCI of the mid circumflex with implantation of a 3.5 x 32 mm Promus Elite drug -eluting stent postdilated with a 3.5 mm noncompliant balloon at nominal pressures. Recommendations 1. Aspirin 80 mg daily 2. Plavix 75 mg daily 3. Cardiac rehabilitation referral and aggressive blood pressure and heart failure treatment 4. If after adequate medical therapy the patient continues to have symptoms could consider high risk PCI with atherectomy of the left circumflex and LAD. Signed by : Candy Waterman, Electronically Approved : 12/24/2020 18:17:57
--- NOTE | 2020-12-24 19:10 | NUR ---
Assessment completed vss poc explained pt denied pain pt on bedrest until 1930 daughter at bedside call light placed in reach will resume care and continue to monitor pt.
--- NOTE | 2020-12-24 19:10 | NUR ---
Pt in bed assessment completed vss poc explained call light in reach pt denied pain right groin site soft. will resume care and continue to monitor pt.
[2020-12-24] MEDS ORDERED: ATORVASTATIN CALCIUM 20 MG TABLET PO SCH (21:00)
[2020-12-24] MEDS ORDERED: LOSARTAN POTASSIUM 50 MG TABLET. PO SCH (21:00)
[2020-12-24] MEDS: LABETALOL HCL 200 MG TABLET PO SCH (21:11)
[2020-12-24] MEDS: cloNIDine HCL 0.1 MG TABLET PO SCH (21:11)
[2020-12-25 02:37] VITALS: BP 150/67
[2020-12-25 07:00] VITALS: BP 146/66
--- NOTE | 2020-12-25 08:09 | NUR ---
YESTERDAY, IN DATE 12/24/2020 AT 15:20, AN ARTERIAL FEMORAL 6F SHEATH WAS MANUALLY PULLED BEDSIDE BY ME, AND MANUAL PRESSURE WAS APPLIED TO THE ACCESS SITE FOR 15 MINUTES AFTER WHICH HOMEOSTASIS WAS ACHIEVED. AT 15:35 THE SITE WAS FREE OF BLEEDING, SWELLING, REDNESS AND SOFT TO THE TOUCH. RN CHECKED THE SITE RIGHT AFTER AND CONFIRMED HOMEOSTASIS. AT 15:38, AC RT(R) (PRESENT FOR THE ENTIRE DURATION OF THE PROCEDURE TO ASSIST) AND MYSELF LEFT THE ROOM.
[2020-12-25] MEDS ORDERED: DIALYSIS PATIENT. MC PRN (08:15)
[2020-12-25] MEDS ORDERED: IV NORMAL SALINE 1000ML BAG 1,000 ML IV PRN ×2 (08:15)
[2020-12-25] MEDS ORDERED: ASPIRIN ENTERIC COATED 81 MG TABLET.DR. PO SCH (09:00)
[2020-12-25] MEDS ORDERED: FOLIC/VIT B COMP W-C (RENAL) TABLET. PO SCH (09:00)
[2020-12-25] MEDS: LABETALOL HCL 200 MG TABLET PO SCH ×2 (09:00→12:36)
--- NOTE | 2020-12-25 09:41 | PDOC3 ---
RUBIN MARCOS COAL HAULER 12/25/20 0941: Discharge Summary Visit Information Date of Admission: Dec 24, 2020 Date of Discharge: Dec 25, 2020 Admitting Diagnosis: CAD, ROY, ESRD, HTN, DM2, HLP, Hyperkalemia Final Diagnosis CAD, ROY, ESRD, HTN, DM2, HLP, S/P PCI Brief Hospital Course Allergies Allergies Coded Allergies Type Severity Reaction Last Updated Verified metformin Allergy Severe breathing problems 12/24/20 Yes atenolol Allergy Intermediate Unknown 09/15/18 Yes Vital Signs Vital Signs Date Time Temp Pulse Resp B/P (MAP) Pulse Ox O2 Delivery O2 Flow Rate FiO2 12/25/20 07:00 98.9 54 18 146/66 (92) 96 Room Air 98.9 12/24/20 14:44 2.0 Lab Results Laboratory Tests Test 12/24/20 07:20 12/24/20 07:52 12/24/20 13:37 White Blood Count 5.9 x10^3/uL (4.0-11.0) Red Blood Count 3.39 x10^6/uL (4.30-5.70) Hemoglobin 10.9 g/dL (13.0-17.5) Hematocrit 32.3 % (39.0-53.0) Mean Corpuscular Volume 95 fL (79-100) Mean Corpuscular Hemoglobin 32 pg (25-35) Mean Corpuscular Hemoglobin Concent 34 g/dL (31-37) Red Cell Distribution Width 14.6 % (11.5-14.5) Platelet Count 157 x10^3/uL (140-400) Sodium Level 139 mmol/L (136-145) Potassium Level 6.5 mmol/L (3.5-5.1) 6.6 mmol/L (3.5-5.1) Chloride Level 101 mmol/L (98-107) Carbon Dioxide Level 27 mmol/L (21-32) Anion Gap 11 (6-14) Blood Urea Nitrogen 53 mg/dL (8-26) Creatinine 7.1 mg/dL (0.7-1.3) Estimated GFR (Cockcroft-Gault) 7.6 Glucose Level 70 mg/dL (70-99) Calcium Level 9.4 mg/dL (8.5-10.1) Activated Clotting Time 239 sec (92-181) Laboratory Tests Test 12/24/20 13:37 Activated Clotting Time 239 sec (92-181) Brief Hospital Course Mr. Foster is a 75 old male admitted for planned PCI. He has known hx of 3VD and CABG vs complex PCI was discussed and does not want to have CABG and randi nues to have exertional dyspnea despite HD. He was ESRD but poor candidate for renal transplant. Upon admission he was noted with hyperkalemia and had HD after his PCI and another partial HD this morning. Appreciate consult from nephrology, Dr. Pastor. He then had successful complex PCI of the mid circumflex with implantation of a 3.5 x 32 mm Promus Elite drug-eluting stent postdilated with a 3.5 mm noncompliant balloon at nominal pressures. If after adequate medical therapy the patient continues to have symptoms could consider high risk PCI with atherectomy of the left circumflex and LAD. He tolerated the procedure well. Right groin arteriotomy site intact with no swelling, erythema or drainage. Neurovascular status to bilateral LE intact. AOx3. basilar lungs diminished. Abd is soft and nontender. He is ambulatory, denies any discomfort, no SOA. SR with no significant ectopies. VSS. He does continue to smoke tobacco and smoking cessation discussed but no intention of quitting. Encouraged cardiac rehab. Continue current home medications and optimize statin and add plavix. He also takes losartan and discussed this with Dr. Pastor and will continue for now and to monitor K as outpt and pt to discuss with Dr. Koenig in regards to this. His DM2 is diet controlled. Discharge Information Condition at Discharge: Stable Follow Up: Weeks Disposition/Orders: D/C to Home Scheduled Amlodipine Besylate (Amlodipine Besylate) 10 Mg Tablet, 5 MG PO HS for HTN, (Reported) Entered as Reported by: LISA STALLWORTH on 09/15/18 0838 Last Taken: Unknown Dose on 12/23/20 Last Action: Continued on 12/24/201816 by JACE BURGESS, RN Aspirin (Adult Low Dose Aspirin Ec) 81 Mg Tablet., 1 TAB PO DAILY for for 30 Days, #30 Ref 0 (Reported) Entered as Reported by: KRYSTAL ARREAGA on 12/24/20 1446 Last Taken: Unknown Dose on 12/24/20 Last Action: Continued on 12/24/201816 by JACE BURGESS RN Atorvastatin Calcium (Atorvastatin Calcium) 40 Mg Tablet, 40 MG PO QHS for HLP, CAD for 30 Days, #30 Prescribed by: RUBIN MARCOS on 12/25/20 1227 Calcium Carbonate (Calcium) 500 Mg Tablet, 667 MG PO TID for supplement, (Reported) Entered as Reported by: Pat Watkins on 05/21/20 0746 Last Taken: Unknown Dose on 12/24/20 Last Action: Continued on 12/24/201816 by JACE BURGESS RN Clonidine Hcl (Clonidine Hcl) 0.1 Mg Tablet, 0.1 MG PO BID for HTN, (Reported) Entered as Reported by: LISA STALLWORTH on 09/15/18 0838 Last Taken: Unknown Dose on 12/24/20 Last Action: Continued on 12/24/201816 by JACE BURGESS RN Clopidogrel Bisulfate (Clopidogrel) 75 Mg Tablet, 75 MG PO DAILYWBKFT for CAD, #30 Ref 6 Prescribed by: RUBIN MARCOS on 12/25/20 1227 Folic Acid/Vitamin B Comp W-C (Greta-Rusty Tablet) 0.8 Mg Tablet, 1 TAB PO DAILY for supplement for 30 Days, #30 Ref 0 (Reported) Entered as Reported by: Pat Wtakins on 05/21/20 0746 Last Taken: Unknown Dose on 12/24/20 Last Action: Continued on 12/24/201816 by JACE BURGESS RN Labetalol Hcl (Labetalol Hcl) 200 Mg Tablet, 1 TAB PO BID for HTN, #60 Ref 5 (Reported) Entered as Reported by: LISA STALLWORTH on 09/15/18 0838 Last Taken: Unknown Dose on 12/23/20 Last Action: Continued on 12/24/201816 by JACE BURGESS RN Losartan Potassium (Losartan Potassium) 50 Mg Tablet, 50 MG PO HS for HYPERTENSION, (Reported) Entered as Reported by: EDIN CARDENAS on 12/24/20 0800 Last Taken: Unknown Dose on 12/23/20 Last Action: Continued on 12/24/201816 by JACE BURGESS RN Discontinued Medications Atorvastatin Calcium (Atorvastatin Calcium) 20 Mg Tablet, 1 TAB PO DAILY for rx, #30 Ref 5 (Reported) Entered as Reported by: EDIN CARDENAS on 12/24/20 0803 Last Taken: Unknown Dose on 12/23/20 Last Action: Continued on 12/24/201816 by JACE BURGESS RN Patient Instructions Patient Instructions GENERAL INSTRUCTIONS: 1. Your dressing should be removed prior to leaving the hospital. 2. It is OK to shower the day after your procedure. 3. If you received stents, be sure to carry your stent information card with you in your wallet/purse at all times. 4. Call the office immediately at [phone] if you notice any fever or if there is redness, worsening tenderness/pain, increased bruising, or drainage from the puncture site. 5. Should you have bleeding from the site, lie down immediately & put pressure on the site. The pressure should be hard enough to stop the bleeding. Have the nearest person call 911. DO NOT try to drive to the ER with active bleeding. 6. If you notice a change in color, coolness to touch, or loss of feeling in the affected extremity, come to the emergency room. Please have someone drive you or call 911 if no one is available. DO NOT drive yourself. 7. If you normally take glucophage (metformin), please do not take this medicine for 48 hours following your procedure. 8. DO NOT STOP TAKING YOUR PLAVIX OR ASPIRIN UNLESS IT IS CLEARED BY A CHICKEN FANCIER OF YOUR GOLF BALL INSPECTOR AT OUR OFFICE. 9. QUIT SMOKING: the [employer], [employer], & [employer] have cessation resources available on their websites 10. Please have someone available to drive you home from the hospital as you may be limited by sedation medications given during the procedure. Femoral (Groin) access: 1. Do no lifting, pushing, pulling, bending, stooping, or recurrent stair climbing for 3 days following your procedure. 2. Once past the first 3 days, do not do any HEAVY exertion or lifting for one week following the procedure. No gym workouts, running, lifting greater than a gallon of milk, etc 3. Do not submerge in bath or pool for one week. OK to drive 3 days following your procedure, but if going long distance, do not go alone & take hourly breaks to get out of car and walk around. Call the office at [phone] for any questions or concerns. Justicifation of Admission Dx: Justifications for Admission: Justification of Admission Dx: Yes Chronic Renal Failure: Electrolyte Abnormality CANDY FIGUEROA MD 12/25/20 1449: Discharge Summary Brief Hospital Course Brief Hospital Course The patient was seen and interviewed as well as examined at the bedside. The chart was reviewed. The case was discussed. Agree with the plan of care. Discharge Information Scheduled Amlodipine Besylate (Amlodipine Besylate) 10 Mg Tablet, 5 MG PO HS for HTN, (Reported) Entered as Reported by: LISA STALLWORTH on 09/15/18 08 Last Taken: Unknown Dose on 12/23/20 Last Action: Continued on 12/24/201816 by JACE BURGESS RN Aspirin (Adult Low Dose Aspirin Ec) 81 Mg Tablet.dr, 1 TAB PO DAILY for for 30 Days, #30 Ref 0 (Reported) Entered as Reported by: KRYSTAL ARREAGA on 12/24/20 1446 Last Taken: Unknown Dose on 12/24/20 Last Action: Continued on 12/24/201816 by JACE BURGESS RN Atorvastatin Calcium (Atorvastatin Calcium) 40 Mg Tablet, 40 MG PO QHS for HLP, CAD for 30 Days, #30 Prescribed by: RUBIN MARCOS on 12/25/20 1227 Calcium Carbonate (Calcium) 500 Mg Tablet, 667 MG PO TID for supplement, (Reported) Entered as Reported by: Pat Watkins on 05/21/20 0746 Last Taken: Unknown Dose on 12/24/20 Last Action: Continued on 12/24/201816 by JACE BURGESS RN Clonidine Hcl (Clonidine Hcl) 0.1 Mg Tablet, 0.1 MG PO BID for HTN, (Reported) Entered as Reported by: LISA STALLWORTH on 09/15/18837 Last Taken: Unknown Dose on 12/24/20 Last Action: Continued on 12/24/201816 by JACE BURGESS RN Clopidogrel Bisulfate (Clopidogrel) 75 Mg Tablet, 75 MG PO DAILYWBKFT for CAD, #30 Ref 6 Prescribed by: RUBIN MARCOS on 12/25/20 1227 Folic Acid/Vitamin B Comp W-C (Greta-Rusty Tablet) 0.8 Mg Tablet, 1 TAB PO DAILY for supplement for 30 Days, #30 Ref 0 (Reported) Entered as Reported by: Pat Watkins on 05/21/20 0746 Last Taken: Unknown Dose on 12/24/20 Last Action: Continued on 12/24/201816 by JACE BURGESS RN Labetalol Hcl (Labetalol Hcl) 200 Mg Tablet, 1 TAB PO BID for HTN, #60 Ref 5 (Reported) Entered as Reported by: LISA STALLWORTH on 09/15/18 0838 Last Taken: Unknown Dose on 12/23/20 Last Action: Continued on 12/24/201816 by JACE BURGESS RN Losartan Potassium (Losartan Potassium) 50 Mg Tablet, 50 MG PO HS for HYPERTENSION, (Reported) Entered as Reported by: EDIN CARDENAS on 12/24/20 0800 Last Taken: Unknown Dose on 12/23/20 Last Action: Continued on 12/24/201816 by JACE BURGESS RN Discontinued Medications Atorvastatin Calcium (Atorvastatin Calcium) 20 Mg Tablet, 1 TAB PO DAILY for rx, #30 Ref 5 (Reported) Entered as Reported by: EDIN CARDENAS on 12/24/20 0803 Last Taken: Unknown Dose on 12/23/20 Last Action: Continued on 12/24/201816 by JOSÉ ROBERTS JHUNNE M APRN Dec 25, 2020 09:41 CANDY FIGUEROA MD Dec 25, 2020 14:49
[2020-12-25] MEDS ORDERED: CLOPIDOGREL BISULFATE 75 MG TABLET PO ONE (09:45)
[2020-12-25] MEDS: CALCIUM ACETATE 667 MG CAPSULE PO SCH ×2 (12:00→12:36)
--- NOTE | 2020-12-25 12:14 | PDOC2 ---
CONSULT Date of Consult Date of Consult DATE: 12/25/20 TIME: 11:56 Reason for Consult Reason for Consult: ESRD HyperKalemia 12/24 Identification/Chief Complaint Chief Complaint No complaints at present Source Source: Chart review, Patient History of Present Illness Reason for Visit: Patient is a 75-year-old CM who presented for planned outpatient Cardiac catheterization - PCI of LAD and left circumflex on 12/24. Preprocedure testing revealed an elevated potassium of 6.6 , he was dialyzed urgently on 12/24 . Subsequently taken to laboratory chemist for planned procedure. Decision to admit him was made later Currently he denies any complaints . He is getting dialysis as per his routine TTS schedule. Denies CP, SOB. No F/C, No N/V. Denies Chest pain . Cardiology was consulted initially as Outpatient for Renal pretransplant evaluation. He was found to have 3V coronary artery disease . He was asymptomatic initially with preserved LV function. Cardiology discussed with him option bypass surgery versus complex staged PCI. Per Transplant team he is a poor candidate for renal transplantation Over the last several months he began to have worsening exertional dyspnea limiting his activities He does not want to go for CABG and therefore planned for Outpatient Cath for itervention. Past Medical History Past Medical History 1. End-stage renal disease on hemodialysis Thursday//Thursday 2. Hypertension 3. Type 2 diabetes 4. Dyslipidemia 5. Triple-vessel coronary artery disease 6. Diastolic heart failure, chronic Family History Family History Non contributory Social History Social History No current alcohol, tobacco or illicit drug use Current Medications Current Medications Current Medications Lidocaine HCl (Xylocaine-Mpf 1% 2ml Vial) 2 ml STK-MED ONCE .ROUTE ; Start 12/24/20 at 07:38; Stop 12/24/20 at 07:38; Status DC Iodixanol (Visipaque 320) 100 ml STK-MED ONCE .ROUTE ; Start 12/24/20 at 07:38; Stop 12/24/20 at 07:38; Status DC Heparin Sodium/ Sodium Chloride 1,500 ml @ As Directed STK-MED ONCE .ROUTE ; Start 12/24/20 at 07:38; Stop 12/24/20 at 07:38; Status DC Sodium Chloride 1,000 ml @ 1,000 mls/hr Q1H PRN IV hypotension; Start 12/24/20 at 09:15; Stop 12/24/20 at 15:14; Status Cancel Albumin Human 200 ml @ 200 mls/hr 1X PRN PRN IV Hypotension; Start 12/24/20 at 09:15; Stop 12/24/20 at 15:14; Status Cancel Sodium Chloride 1,000 ml @ 400 mls/hr Q2H30M PRN IV PATENCY; Start 12/24/20 at 09:15; Stop 12/24/20 at 21:14; Status Cancel Info (PHARMACY MONITORING -- do not chart) 1 each PRN DAILY PRN MC SEE COMMENTS; Start 12/24/20 at 09:15; Stop 12/25/20 at 09:14; Status Cancel Sodium Chloride 1,000 ml @ 1,000 mls/hr Q1H PRN IV hypotension; Start 12/24/20 at 10:00; Stop 12/24/20 at 15:59; Status DC Sodium Chloride 1,000 ml @ 400 mls/hr Q2H30M PRN IV PATENCY; Start 12/24/20 at 10:00; Stop 12/24/20 at 21:59; Status DC Info (PHARMACY MONITORING -- do not chart) 1 each PRN DAILY PRN MC SEE COMMENTS; Start 12/24/20 at 10:00; Stop 12/25/20 at 09:59; Status Cancel Lidocaine HCl (Lidocaine 1% 20ml Vial) 20 ml STK-MED ONCE .ROUTE ; Start 12/24/20 at 11:43; Stop 12/24/20 at 11:43; Status DC Fentanyl Citrate (Fentanyl 2ml Vial) 100 mcg STK-MED ONCE .ROUTE ; Start 12/24/20 at 12:31; Stop 12/24/20 at 12:31; Status DC Midazolam HCl (Versed) 2 mg STK-MED ONCE .ROUTE ; Start 12/24/20 at 12:31; Stop 12/24/20 at 12:31; Status DC Heparin Sodium (Porcine) (Heparin Sodium) 10,000 unit STK-MED ONCE .ROUTE ; Start 12/24/20 at 13:24; Stop 12/24/20 at 13:25; Status DC Heparin Sodium/ Sodium Chloride (HEPARIN for ARTERIAL LINE FLUSH) 1,000 unit 1X ONCE IART Last administered on 12/24/20at 14:31; Start 12/24/20 at 13:45; Stop 12/24/20 at 14:01; Status DC Heparin Sodium/ Sodium Chloride (HEPARIN for ARTERIAL LINE FLUSH) 1,000 unit 1X ONCE IART Last administered on 12/24/20at 14:31; Start 12/24/20 at 13:45; Stop 12/24/20 at 14:01; Status DC Midazolam HCl (Versed) 2 mg 1X ONCE IV Last administered on 12/24/20at 14:41; Start 12/24/20 at 13:45; Stop 12/24/20 at 14:01; Status DC Fentanyl Citrate (Fentanyl 2ml Vial) 50 mcg 1X ONCE IV Last administered on 12/24/20at 14:41; Start 12/24/20 at 13:45; Stop 12/24/20 at 14:01; Status DC Iodixanol (Visipaque 320) 100 ml 1X ONCE IART Last administered on 12/24/20at 14:31; Start 12/24/20 at 13:45; Stop 12/24/20 at 14:01; Status DC Heparin Sodium (Porcine) (Heparin Sodium) 6,000 unit 1X ONCE IV Last administered on 12/24/20at 14:42; Start 12/24/20 at 13:45; Stop 12/24/20 at 14:01; Status DC Lidocaine HCl (Lidocaine 1% 20ml Vial) 10 ml 1X ONCE INJ Last administered on 12/24/20at 14:42; Start 12/24/20 at 13:45; Stop 12/24/20 at 14:01; Status DC Nitroglycerin (Nitroglycerin) 200 mcg STK-MED ONCE .ROUTE ; Start 12/24/20 at 13:38; Stop 12/24/20 at 13:38; Status DC Info (CONTRAST GIVEN -- Rx MONITORING) 1 each PRN DAILY PRN MC SEE COMMENTS; Start 12/24/20 at 14:15; Stop 12/26/20 at 14:14 Clopidogrel Bisulfate (Plavix) 75 mg STK-MED ONCE .ROUTE ; Start 12/24/20 at 14:06; Stop 12/24/20 at 14:06; Status DC Tirofiban/Sodium Chloride 100 ml @ As Directed STK-MED ONCE IV ; Start 12/24/20 at 14:06; Stop 12/24/20 at 14:06; Status DC Hydralazine HCl (Apresoline Inj) 20 mg STK-MED ONCE .ROUTE ; Start 12/24/20 at 14:12; Stop 12/24/20 at 14:12; Status DC Nitroglycerin (Nitroglycerin) 200 mcg 1X ONCE ICAR Last administered on 12/24/20at 14:31; Start 12/24/20 at 14:15; Stop 12/24/20 at 14:18; Status DC Clopidogrel Bisulfate (Plavix) 600 mg 1X ONCE PO Last administered on 12/24/20at 14:40; Start 12/24/20 at 14:15; Stop 12/24/20 at 14:18; Status DC Hydralazine HCl (Apresoline Inj) 10 mg 1X ONCE IVP Last administered on 12/24/20at 14:41; Start 12/24/20 at 14:15; Stop 12/24/20 at 14:18; Status DC Heparin Sodium/ Sodium Chloride 500 ml @ As Directed STK-MED ONCE .ROUTE ; Start 12/24/20 at 14:20; Stop 12/24/20 at 14:21; Status DC Tirofiban/Sodium Chloride 100 ml @ 7.974 mls/ hr CONT PRN IV PER PROTOCOL Last administered on 12/24/20at 14:40; Start 12/24/20 at 14:30; Stop 12/25/20 at 14:29 Amlodipine Besylate (Norvasc) 5 mg HS PO Last administered on 12/24/20at 21:12; Start 12/24/20 at 21:00 Aspirin (Ecotrin) 81 mg DAILY PO ; Start 12/25/20 at 09:00 Atorvastatin Calcium (Lipitor) 20 mg QHS PO Last administered on 12/24/20at 21:12; Start 12/24/20 at 21:00; Stop 12/25/20 at 09:43; Status DC Calcium Acetate (Phoslo) 667 mg TIDWMEALS PO ; Start 12/25/20 at 08:00 Clonidine HCl (Catapres) 0.1 mg BID PO Last administered on 12/24/20at 21:11; Start 12/24/20 at 21:00 Vitamin B Complex/ Vitamin C (Greta-Rusty) 1 tab DAILY PO ; Start 12/25/20 at 09:00 Labetalol HCl (Trandate) 200 mg BID PO Last administered on 12/24/20at 21:11; Start 12/24/20 at 21:00 Losartan Potassium (Cozaar) 50 mg HS PO Last administered on 12/24/20at 21:10; Start 12/24/20 at 21:00 Sodium Chloride 1,000 ml @ 1,000 mls/hr Q1H PRN IV hypotension; Start 12/25/20 at 08:15; Stop 12/25/20 at 14:14 Sodium Chloride 1,000 ml @ 400 mls/hr Q2H30M PRN IV PATENCY; Start 12/25/20 at 08:15; Stop 12/25/20 at 20:14 Info (PHARMACY MONITORING -- do not chart) 1 each PRN DAILY PRN MC SEE COMMENTS; Start 12/25/20 at 08:15 Atorvastatin Calcium (Lipitor) 40 mg QHS PO ; Start 12/25/20 at 21:00 Clopidogrel Bisulfate (Plavix) 75 mg 1X ONCE PO ; Start 12/25/20 at 09:45; Stop 12/25/20 at 09:46; Status DC Clopidogrel Bisulfate (Plavix) 75 mg DAILYWBKFT PO ; Start 12/26/20 at 08:00 Active Scripts Active Reported Adult Low Dose Aspirin Ec (Aspirin) 81 Mg Tablet.dr 1 Tab PO DAILY 30 Days Atorvastatin Calcium 20 Mg Tablet 1 Tab PO DAILY Losartan Potassium 50 Mg Tablet 50 Mg PO HS Calcium (Calcium Carbonate) 500 Mg Tablet 667 Mg PO TID Greta-Rusty Tablet (Folic Acid/Vitamin B Comp W-C) 0.8 Mg Tablet 1 Tab PO DAILY 30 Days Amlodipine Besylate 10 Mg Tablet 5 Mg PO HS Labetalol Hcl 200 Mg Tablet 1 Tab PO BID Clonidine Hcl 0.1 Mg Tablet 0.1 Mg PO BID Allergies Allergies: Coded Allergies: metformin (Verified Allergy, Severe, breathing problems, 12/24/20) atenolol (Verified Allergy, Intermediate, Unknown, 09/15/18) ROS Review of System ROS is negative, except as in HPI Physical Exam Physical Exam General: Alert, Oriented X3, NAD HEENT: Atraumatic, OM moist Neck Supple Lungs: Clear to auscultation, Non labored Heart: Regular rate, Normal S1, Normal S2 Abdomen: Normal bowel sounds, NT, BS + Extremities: No clubbing, no edema Skin: No rashes Neuro: Grossly normal Psyh pleasant, cooperative No rodriguez, No cva or SP tenderness Vital Signs Vital Signs Date Time Temp Pulse Resp B/P (MAP) Pulse Ox O2 Delivery O2 Flow Rate FiO2 12/25/20 08:00 Room Air 12/25/20 07:00 98.9 54 18 146/66 (92) 96 98.9 12/24/20 14:44 2.0 Assessment & Plan ESRD - on HD TTS, seen during treatment, tolerating well , continue as ordered. Benny JAIN, patient wants to do short treatment today ( 2 hrs) as he was dialyzed yesterday as well. 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 No labs this morning Unstable angina and dyspnea in the setting of triple-vessel disease- s/p complex PCI of the mid circumflex drug-eluting stent on 12/24. If stays Symptomatic card will consider complex PCI with atherectomy of the left circumflex and LAD. Acute on chronic diastolic heart failure, LVEDP 19 mmHg- Cardiac rehabilitation referral and aggressive blood pressure and heart failure treatment per Cardiology Severe three-vessel coronary artery disease- patient refused CABG Labs Labs Laboratory Tests Test 12/24/20 07:20 12/24/20 07:52 12/24/20 13:37 White Blood Count 5.9 x10^3/uL (4.0-11.0) Red Blood Count 3.39 x10^6/uL (4.30-5.70) Hemoglobin 10.9 g/dL (13.0-17.5) Hematocrit 32.3 % (39.0-53.0) Mean Corpuscular Volume 95 fL (79-100) Mean Corpuscular Hemoglobin 32 pg (25-35) Mean Corpuscular Hemoglobin Concent 34 g/dL (31-37) Red Cell Distribution Width 14.6 % (11.5-14.5) Platelet Count 157 x10^3/uL (140-400) Sodium Level 139 mmol/L (136-145) Potassium Level 6.5 mmol/L (3.5-5.1) 6.6 mmol/L (3.5-5.1) Chloride Level 101 mmol/L (98-107) Carbon Dioxide Level 27 mmol/L (21-32) Anion Gap 11 (6-14) Blood Urea Nitrogen 53 mg/dL (8-26) Creatinine 7.1 mg/dL (0.7-1.3) Estimated GFR (Cockcroft-Gault) 7.6 Glucose Level 70 mg/dL (70-99) Calcium Level 9.4 mg/dL (8.5-10.1) Activated Clotting Time 239 sec (92-181) Laboratory Tests Test 12/24/20 13:37 Activated Clotting Time 239 sec (92-181) Review All relevant outside records, renal labs, imaging studies, telemetry/EKG's were reviewed. PHU MONROE MD Dec 25, 2020 12:14
[2020-12-25] MEDS ORDERED: CLOP75TA PO (12:27)
[2020-12-25] MEDS ORDERED: ATOR40TA59 PO (12:27)
[2020-12-25] MEDS: cloNIDine HCL 0.1 MG TABLET PO SCH (12:35)
--- NOTE | 2020-12-25 12:44 | NUR ---
SS following for discharge planning. SS reviewed pt chart and discussed with pt RN. Pt is from home with spouse and is currently on room air. Pt had heart cath with stent on 12/24/2020. Pt has outpatient hemodialysis at [facility], ; fax [phone], Thursday, , and Thursday. Discharge plan is currently to home when medically ready for discharge. SS will continue to follow for discharge planning.
[2020-12-25 15:00] VITALS: BP 160/63
--- NOTE | 2020-12-25 15:15 | NUR ---
Discharge: Teaching verbal and written. Reviewed cardiac cath, CAD, aspirin, heart health, dialysis, groin site, ect. Patient verbalized understanding. Family at bedside. All belongings with patient. Prescriptions sent to pharmacy by physician. All belongings with patient. Patient assisted off of unit via wheelchair accompanied by JOSÉ Beckwith
[2020-12-25] MEDS ORDERED: ATORVASTATIN CALCIUM 40 MG TABLET. PO SCH (21:00)
[2020-12-26] MEDS ORDERED: CLOPIDOGREL BISULFATE 75 MG TABLET PO SCH (08:00)
== END 2020-12-25 15:15 | disposition home or self-care (01) | DRG 246 ==
LOC: CCL 06:51 → 6 SOUTH 13:00
PROVIDERS: ADMIT Internal Medicine Cardiovascular Disease; ATTEND Internal Medicine Cardiovascular Disease
PROC: B211YZZ Fluoroscopy of Multiple Coronary Arteries using Other Contrast (ICD-10-PCS; principal; 2020-12-24)
PROC: 027034Z Dilation of Coronary Artery, One Artery with Drug-eluting Intraluminal Device, Percutaneous Approach (ICD-10-PCS; 2020-12-24)
PROC: 4A023N7 Measurement of Cardiac Sampling and Pressure, Left Heart, Percutaneous Approach (ICD-10-PCS; 2020-12-24)
PROC: 3E073PZ Introduction of Platelet Inhibitor into Coronary Artery, Percutaneous Approach (ICD-10-PCS; 2020-12-24)
PROC: 5A1D70Z Performance of Urinary Filtration, Intermittent, Less than 6 Hours Per Day (ICD-10-PCS; 2020-12-25)
DX: I13.2 Hypertensive heart and chronic kidney disease with heart failure and with stage 5 chronic kidney disease, or end stage renal disease (principal); N18.6 End stage renal disease; I50.33 Acute on chronic diastolic (congestive) heart failure; I25.110 Atherosclerotic heart disease of native coronary artery with unstable angina pectoris; R06.09 Other forms of dyspnea; E11.22 Type 2 diabetes mellitus with diabetic chronic kidney disease; E78.5 Hyperlipidemia, unspecified; E87.5 Hyperkalemia; F17.200 Nicotine dependence, unspecified, uncomplicated; Z79.82 Long term (current) use of aspirin; Z98.61 Coronary angioplasty status; Z99.2 Dependence on renal dialysis; Z88.8 Allergy status to other drugs, medicaments and biological substances
CPT/HCPCS: 36415; 80048; 84132; 85027; 85347; 92928; 93458; 99152; 99153; C1725; C1894; J0360; J1644; J2250; J3010; J3490; Q9967; C1874; G0378; J3246